=== PATIENT | male | born 1995 | race Caucasian/White ===

== ENCOUNTER 2016-12-16 22:12 | Emergency (ER) | payer MEDICAID, OTHER ==
[2016-12-16 22:12] VITALS: BMI 26.4
[2016-12-16 22:17] VITALS: RESP 16; TEMP 98.2; O2SAT 100
[2016-12-16] MEDS ORDERED: Sodium Chloride 0.9% 1,000 ML IV STA (22:44)
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
[2016-12-17 01:13] VITALS: BP 125/80; PULSE 85
--- NOTE | 2016-12-17 08:06 | CARD ---
APPROVED REPORT EKG Measurement Heart [id number] <Conclusion> Normal sinus rhythm with sinus arrhythmia Possible Left atrial enlargement Borderline ECG
--- NOTE | 2016-12-17 10:09 | RAD ---
HISTORY: Chest pain COMPARISON: No prior. TECHNIQUE: Chest PA and lateral FINDINGS: LUNGS: The lungs are well inflated and clear. PLEURA: No significant pleural effusion identified. No pneumothorax apparent. CARDIOVASCULAR: Normal. OSSEOUS STRUCTURES: No significant abnormalities. VISUALIZED UPPER ABDOMEN: Normal. OTHER FINDINGS: None. IMPRESSION: No active pulmonary disease.
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
== END 2016-12-17 01:18 | disposition home or self-care (01) ==
LOC: H.ER 22:12
DX: S09.90XA Unspecified injury of head, initial encounter (principal); R07.89 Other chest pain; M25.512 Pain in left shoulder; V43.52XA Car driver injured in collision with other type car in traffic accident, initial encounter; Y92.410 Unspecified street and highway as the place of occurrence of the external cause; F32.9 Major depressive disorder, single episode, unspecified; F41.9 Anxiety disorder, unspecified; G47.30 Sleep apnea, unspecified; J45.909 Unspecified asthma, uncomplicated